=== PATIENT | female | born 1995 | race Two or more races ===

== ENCOUNTER → 2022-08-26 | Outpatient (CLI) | payer MEDICAID ==
[2022-08-26 08:54] LABS: Basophils # (auto) 0 10 ^3/uL (0-0.2); Basophils % (auto) 0.4 % (0.0-2.0); Eosinophils # (auto) 0.1 10 ^3/uL (0-0.8); Eosinophils % (auto) 1.2 % (0.0-7.0); Hematocrit 35.7 % (36.0-46.0); Hemoglobin 12.2 g/dL (12.2-16.2); Lymphocytes # (auto) 1.6 10 ^3/uL (0.4-5.4); Lymphocytes % (auto) 21.1 % (10.0-50.0); Mean Corpuscular Hemoglobin 32.2 pg (28.0-32.0); Mean Corpuscular Hgb Conc. 34.1 g/dL (32.0-36.0); Mean Corpuscular Volume 94.4 fL (80.0-100.0); Monocytes # (auto) 0.5 10 ^3/uL (0-1.3); Monocytes % (auto) 6.4 % (0.0-12.0); Neutrophils # (auto) 5.5 10 ^3/uL (1.6-8.6); Neutrophils % (auto) 70.9 % (37.0-80.0); Red Blood Cells 3.79 10^6/uL (4.0-5.20); Red Cell Distribution Width 13.5 % (11.8-14.3); White Blood Cell 7.8 10^3/uL (4.4-10.8)
== END | disposition home or self-care (01) ==
LOC: LAB 08:23
PROVIDERS: ATTEND Obstetrics & Gynecology
DX: O99.810 Abnormal glucose complicating pregnancy (principal); Z3A.00 Weeks of gestation of pregnancy not specified
CPT/HCPCS: 36415; 82951; 83036; 85025

== ENCOUNTER → 2022-10-04 | Outpatient (CLI) | payer MEDICAID ==
[2022-10-04 09:02] LABS: Basophils # (auto) 0 10 ^3/uL (0-0.2); Basophils % (auto) 0.4 % (0.0-2.0); Eosinophils # (auto) 0 10 ^3/uL (0-0.8); Eosinophils % (auto) 0.6 % (0.0-7.0); Hematocrit 37.4 % (36.0-46.0); Hemoglobin 12.6 g/dL (12.2-16.2); Lymphocytes # (auto) 1.5 10 ^3/uL (0.4-5.4); Lymphocytes % (auto) 19.2 % (10.0-50.0); Mean Corpuscular Hemoglobin 31.6 pg (28.0-32.0); Mean Corpuscular Hgb Conc. 33.8 g/dL (32.0-36.0); Mean Corpuscular Volume 93.5 fL (80.0-100.0); Monocytes # (auto) 0.6 10 ^3/uL (0-1.3); Monocytes % (auto) 7.7 % (0.0-12.0); Neutrophils # (auto) 5.5 10 ^3/uL (1.6-8.6); Neutrophils % (auto) 72.1 % (37.0-80.0); Red Cell Distribution Width 13.7 % (11.8-14.3); White Blood Cell 7.7 10^3/uL (4.4-10.8)
[2022-10-05 07:06] LABS: RPR Non Reactive (Non Reactive)
== END | disposition home or self-care (01) ==
LOC: LAB 08:44
PROVIDERS: ATTEND Obstetrics & Gynecology
DX: Z34.80 Encounter for supervision of other normal pregnancy, unspecified trimester (principal); Z3A.00 Weeks of gestation of pregnancy not specified
CPT/HCPCS: 36415; 84112; 85025; 86592

== ENCOUNTER 2022-11-01 09:05 | Observation (INO) | payer MEDICAID ==
[2022-11-01] MEDS ORDERED: PREN1TAB71 OR (10:34)
== END 2022-11-01 11:00 | disposition home or self-care (01) ==
LOC: UNDOADMOB 09:05 → LDRP 09:05
PROVIDERS: ADMIT Obstetrics & Gynecology; ATTEND Obstetrics & Gynecology
DX: O48.0 Post-term pregnancy (principal); Z3A.40 40 weeks gestation of pregnancy
CPT/HCPCS: 59025; 76818; 81002; G0378

== ENCOUNTER 2022-11-03 07:46 | Observation (INO) | payer MEDICAID ==
[~2022-11-03 07:46] MED LIST: PREN1TAB71 OR
== END 2022-11-03 09:23 | disposition home or self-care (01) ==
LOC: LDRP 07:46
PROVIDERS: ADMIT Obstetrics & Gynecology; ATTEND Obstetrics & Gynecology
DX: O48.0 Post-term pregnancy (principal); O26.893 Other specified pregnancy related conditions, third trimester; N89.8 Other specified noninflammatory disorders of vagina; Z3A.40 40 weeks gestation of pregnancy
CPT/HCPCS: 59025; 76818; 81002; 94760; G0378

== ENCOUNTER 2022-11-03 22:50 | Inpatient (IN) | payer MEDICAID ==
[~2022-11-03] VITALS: Ht 157.5 cm; Wt 80.7 kg
[2022-11-03] MEDS ORDERED: LACTATED RINGER'S 1,000 ML IV ONE (23:45)
[2022-11-04] MEDS ORDERED: BUTORPHANOL TARTRATE 2 MG/1 ML VIAL IV PRN ×2 (01:00)
[2022-11-04] MEDS ORDERED: LIDOCAINE 2%HCL (LOCAL ANESTH.) INJ 20ML MDV IJ PRN (01:00)
[2022-11-04] MEDS ORDERED: PROMETHAZINE HCL 25 MG/ML 1ML IV PRN (01:00)
[2022-11-04] MEDS ORDERED: PHISODERM TOP SOLN 240ML BTL TOP PRN (01:00)
[2022-11-04] MEDS: LACTATED RINGER'S 1,000 ML IV SCH ×2 (01:00→09:15)
[2022-11-04] MEDS ORDERED: WITCH HAZEL-GLYCERIN PAD TOP PRN (01:00)
[2022-11-04] MEDS ORDERED: miSOPROStol 50 MCG per PRE-CUT 1/2 TAB PO PRN (01:00)
[2022-11-04] MEDS ORDERED: DERMOPLAST 60ML BOTTLE TOP PRN (01:00)
[2022-11-04 01:21] LABS: Basophils # (auto) 0 10 ^3/uL (0-0.2); Basophils % (auto) 0.4 % (0.0-2.0); Eosinophils # (auto) 0.1 10 ^3/uL (0-0.8); Eosinophils % (auto) 0.7 % (0.0-7.0); Hematocrit 36.5 % (36.0-46.0); Hemoglobin 12.1 g/dL (12.2-16.2); Lymphocytes # (auto) 1.9 10 ^3/uL (0.4-5.4); Lymphocytes % (auto) 21.2 % (10.0-50.0); Mean Corpuscular Hemoglobin 31.3 pg (28.0-32.0); Mean Corpuscular Hgb Conc. 33.2 g/dL (32.0-36.0); Mean Corpuscular Volume 94.3 fL (80.0-100.0); Monocytes # (auto) 0.6 10 ^3/uL (0-1.3); Monocytes % (auto) 6.2 % (0.0-12.0); Neutrophils # (auto) 6.4 10 ^3/uL (1.6-8.6); Neutrophils % (auto) 71.5 % (37.0-80.0); Nucleated Red Blood Cells % 0.1 %; Red Blood Cells 3.87 10^6/uL (4.0-5.20)
[2022-11-04 01:32] LABS: INR 0.99 (0.9-1.15); Partial Thromboplastin Time 25.9 SEC (24.5-34.5); Prothrombin Time 10.4 sec (9.3-11.8)
[2022-11-04 01:34] LABS: Albumin 2.7 g/dL (3.4-5.0); BUN/Creatinine Ratio 19.4 (10.0-20.0); Calcium 8.6 mg/dL (8.5-10.1)
[2022-11-04 01:37] LABS: Bilirubin, Total 0.2 mg/dL (0.2-1.0); Total Protein 6.3 g/dL (6.4-8.2)
[2022-11-04 01:55] LABS: Urine Bacteria NONE SEEN /hpf (None Seen); Urine Blood Negative /uL (Negative); Urine Clarity Clear (Clear); Urine Color Yellow (Yellow); Urine Protein, UAD Negative (Negative); Urine Specific Gravity 1.017 (1.001-1.035); Urine Urobilinogen Normal (Negative); Urine WBC 1 /hpf (0 - 5)
[2022-11-04 01:55] LABS: Giant Platelets Few; Large Platelets MODERATE; Platelet Estimate Decreased
[2022-11-04 02:06] LABS: Alcohol, Urine < 3.0 mg/dL (0-10); Amphetamine Screen, Urine NEGATIVE (NEGATIVE); Barbiturate Scree,Urine NEGATIVE (NEGATIVE); Benzodiazephine Screen, Urine NEGATIVE (NEGATIVE); Cannabinoid Screen, Urine NEGATIVE (NEGATIVE); Cocaine Screen, Urine NEGATIVE (NEGATIVE); Opiate Scree,Urine NEGATIVE (NEGATIVE); Phencyclidine Screen, Urine NEGATIVE (NEGATIVE)
[2022-11-04] MEDS ORDERED: LACT. RINGERS/OXYTOCIN 20UNITS 500 ML IV ONE ×2 (04:45→05:15)
[2022-11-04] MEDS ORDERED: ePHEDrine SULFATE 50 MG/ML AMP IV ONE (10:30)
[2022-11-04] MEDS ORDERED: ROPIVACAINE HCL 200 ML EPI SCH ×2 (10:30→12:00)
[2022-11-04] MEDS ORDERED: LACTATED RINGER'S 1,000 ML IV ONE (10:30)
[2022-11-04 18:08] VITALS: RESP 18
[2022-11-04 18:59] VITALS: BP 112/68; PULSE 84; RESP 16; TEMP 98.4
[2022-11-04] MEDS ORDERED: IBUPROFEN 600 MG TAB PO PRN (19:00)
[2022-11-04] MEDS: ACETAMINOPHEN 325 MG TAB PO PRN (22:16)
[2022-11-04 23:00] VITALS: BP 111/67; PULSE 78; RESP 15; TEMP 98.2; O2SAT 96
[2022-11-05 03:22] VITALS: BP 105/71; PULSE 64; RESP 16; TEMP 98.1; O2SAT 96
[2022-11-05] MEDS: ACETAMINOPHEN 325 MG TAB PO PRN (04:40)
[2022-11-05 07:06] LABS: RPR Non Reactive (Non Reactive)
[2022-11-05 07:08] VITALS: BP 106/64; PULSE 72; RESP 16; TEMP 98.2; O2SAT 96
[2022-11-05 11:10] VITALS: BP 111/73; PULSE 78; RESP 15; TEMP 98.3; O2SAT 96
[2022-11-05 14:46] VITALS: BP 103/62; PULSE 70; RESP 16; TEMP 98; O2SAT 97
[2022-11-05 19:15] VITALS: BP 112/72; PULSE 75; RESP 18; TEMP 98.2; O2SAT 96
[2022-11-06 19:06] LABS: Treponema pallidum Ab (FTA-Ab) Non Reactive (Non Reactive)
== END 2022-11-05 19:15 | disposition home or self-care (01) | DRG 560 ==
LOC: LDRP 22:50 → OBSVTOIN 11-04 00:15 → LDRP 11-04 00:53
PROVIDERS: ADMIT Obstetrics & Gynecology; ATTEND Obstetrics & Gynecology
PROC: 10E0XZZ Delivery of Products of Conception, External Approach (ICD-10-PCS; principal; 2022-11-04)
PROC: 0HQ9XZZ Repair Perineum Skin, External Approach (ICD-10-PCS; 2022-11-04)
PROC: 3E0R3BZ Introduction of Anesthetic Agent into Spinal Canal, Percutaneous Approach (ICD-10-PCS; 2022-11-04)
PROC: 00HU33Z Insertion of Infusion Device into Spinal Canal, Percutaneous Approach (ICD-10-PCS; 2022-11-04)
DX: O48.0 Post-term pregnancy (principal); Z37.0 Single live birth; O70.0 First degree perineal laceration during delivery; Z3A.40 40 weeks gestation of pregnancy; O77.0 Labor and delivery complicated by meconium in amniotic fluid
CPT/HCPCS: 36415; 59025; 59409; 80053; 80307; 81001; 81002; 85025; 85610; 85730; 86592; 86850; 86900; 86901; 94760; 96360; 96361; G0378; J2590